=== PATIENT | female | born 1955 | race Native Hawaiian/Other Pacific Islander ===

== ENCOUNTER 2016-10-08 09:41 | Inpatient (IN) | payer OTHER ==
[~2016-10-08] VITALS: Ht 162.6 cm; Wt 63.0 kg
[2016-10-08 10:20] VITALS: BP 124/63; TEMP 97.6; Ht 162.6 cm; Wt 63.0 kg
[2016-10-08 10:56] LABS: PLATELET COUNT 224 K/uL (152-353)
[2016-10-08 11:19] LABS: POTASSIUM 4.7 mmol/L (3.6-5.2)
[2016-10-08 12:00] VITALS: BP 116/70; TEMP 97.9
[2016-10-08 16:00] VITALS: BP 124/68; TEMP 98.6
[2016-10-08] MEDS ORDERED: FLUTICASONE50 MCG (17:43)
[2016-10-08] MEDS ORDERED: FLUT0.05 NAS (17:43)
[2016-10-08] MEDS ORDERED: METF500T PO (17:46)
[2016-10-08 20:00] VITALS: BP 120/63; TEMP 98.9
[2016-10-08 23:59] VITALS: BP 111/52; TEMP 98.5
[2016-10-09] VITALS (7 sets, daily range): BP systolic 106–149; BP diastolic 54–81; TEMP 97.8–98.6
[2016-10-09 06:06] LABS: PLATELET COUNT 217 K/uL (152-353)
[2016-10-09 06:09] LABS: POTASSIUM 4.5 mmol/L (3.6-5.2); SODIUM 137 mmol/L (136-145)
== END 2016-10-09 18:40 | disposition short-term general hospital (02) | DRG 390 ==
LOC: MED/SURG 09:41
PROVIDERS: Emergency Medicine; ADMIT Internal Medicine
DX: K56.69 Other intestinal obstruction (principal); E86.0 Dehydration
CPT/HCPCS: 36591; 80053; 81000; 82150; 83690; 85027; 85651; 86140; J0744; J1100; J2270; J2405; J3490; Q9963

== ENCOUNTER 2016-10-09 17:25 | Outpatient (CLI) | payer OTHER ==
[~2016-10-09 17:25] MED LIST: FLUT0.05 NAS; FLUTICASONE50 MCG; METF500T PO
== END 2016-10-09 18:35 | disposition short-term general hospital (02) ==
LOC: AMB 17:25
DX: K56.69 Other intestinal obstruction (principal); E86.0 Dehydration
CPT/HCPCS: A0425; A0427

== ENCOUNTER 2016-10-24 11:35 | Outpatient (CLI) | payer OTHER | END 2016-10-24 19:08 | disposition home or self-care (01) | LOC: US 11:35 | DX: M79.89 Other specified soft tissue disorders (principal) ==

== ENCOUNTER 2017-02-26 08:37 | Outpatient (CLI) | payer OTHER | END 2017-02-26 19:04 | disposition home or self-care (01) | LOC: MAMMO 08:37 | DX: Z12.31 Encounter for screening mammogram for malignant neoplasm of breast (principal) | CPT/HCPCS: G0202-TC ==

== ENCOUNTER 2017-08-25 15:12 | Outpatient (CLI) | payer OTHER | END 2017-08-25 19:23 | disposition home or self-care (01) | LOC: RAD 15:12 | DX: M54.2 Cervicalgia (principal); M25.552 Pain in left hip; M25.551 Pain in right hip ==

== ENCOUNTER 2017-10-03 13:34 | Outpatient (CLI) | payer OTHER | END 2017-10-03 19:33 | disposition home or self-care (01) | LOC: MRI 13:34 | DX: M47.812 Spondylosis without myelopathy or radiculopathy, cervical region (principal); M54.2 Cervicalgia ==

== ENCOUNTER 2018-03-11 09:46 | Outpatient (CLI) | payer OTHER | END 2018-03-11 23:55 | disposition home or self-care (01) | LOC: MAMMO 09:46 | DX: Z12.31 Encounter for screening mammogram for malignant neoplasm of breast (principal) ==

== ENCOUNTER 2018-07-16 13:52 | Outpatient (CLI) | payer OTHER | END 2018-07-16 21:54 | disposition home or self-care (01) | LOC: MRI 13:52 | DX: M54.2 Cervicalgia (principal); M54.12 Radiculopathy, cervical region; M75.41 Impingement syndrome of right shoulder ==

== ENCOUNTER 2018-11-03 08:21 | Outpatient (CLI) | payer OTHER | END 2018-11-03 23:10 | disposition home or self-care (01) | LOC: RAD 08:21 | DX: Z13.820 Encounter for screening for osteoporosis (principal); Z78.0 Asymptomatic menopausal state ==

== ENCOUNTER 2019-10-13 13:25 | Outpatient (CLI) | payer OTHER ==
[2019-10-13 13:46] LABS: PLATELET COUNT 293 K/uL (152-353)
[2019-10-13 14:00] LABS: POTASSIUM 4.2 mmol/L (3.6-5.2)
== END 2019-10-13 20:24 | disposition home or self-care (01) ==
LOC: LAB 13:25
PROVIDERS: Internal Medicine
DX: E11.40 Type 2 diabetes mellitus with diabetic neuropathy, unspecified (principal)
CPT/HCPCS: 80053; 80061; 81000; 82043; 82306; 82570; 83036; 84439; 84443; 84550; 85027

== ENCOUNTER 2020-06-28 14:43 | Outpatient (CLI) | payer OTHER | END 2020-06-28 22:29 | disposition home or self-care (01) | LOC: MAMMO 14:43 | DX: Z12.31 Encounter for screening mammogram for malignant neoplasm of breast (principal) ==

== ENCOUNTER 2021-07-17 10:51 | Outpatient (CLI) | payer OTHER | END 2021-07-17 21:20 | disposition home or self-care (01) | LOC: RAD 10:51 → MAMMO 11:30 → RAD 21:20 | PROVIDERS: ATTEND Internal Medicine | DX: Z12.31 Encounter for screening mammogram for malignant neoplasm of breast (principal); Z13.820 Encounter for screening for osteoporosis; N95.8 Other specified menopausal and perimenopausal disorders ==

== ENCOUNTER 2022-01-01 17:38 | Outpatient (CLI) | payer OTHER ==
[2022-01-01 18:29] LABS: POTASSIUM 4.2 mmol/L (3.6-5.2)
[2022-01-01 18:50] LABS: PLATELET COUNT 203 K/uL (152-353)
== END 2022-01-01 18:57 | disposition home or self-care (01) ==
LOC: LAB 17:38
PROVIDERS: ATTEND Internal Medicine
DX: E11.9 Type 2 diabetes mellitus without complications (principal)
CPT/HCPCS: 80053; 80061; 81000; 82043; 83036; 84439; 84443; 85007; 85027

== ENCOUNTER 2022-07-17 17:46 | Outpatient (CLI) | payer OTHER ==
[2022-07-17 17:55] LABS: PLATELET COUNT 225 K/uL (152-353)
[2022-07-17 18:29] LABS: POTASSIUM 4.1 mmol/L (3.6-5.2)
== END 2022-07-17 20:52 | disposition home or self-care (01) ==
LOC: LAB 17:46
PROVIDERS: ATTEND Internal Medicine
DX: Z00.00 Encounter for general adult medical examination without abnormal findings (principal); Z13.820 Encounter for screening for osteoporosis; Z51.81 Encounter for therapeutic drug level monitoring; Z79.899 Other long term (current) drug therapy
CPT/HCPCS: 80053; 80061; 81002; 82306; 84439; 84443; 85027

== ENCOUNTER 2022-07-24 11:03 | Outpatient (CLI) | payer OTHER | END 2022-07-24 19:12 | disposition home or self-care (01) | LOC: MAMMO 11:03 | PROVIDERS: ATTEND Internal Medicine | DX: Z12.31 Encounter for screening mammogram for malignant neoplasm of breast (principal); Z13.820 Encounter for screening for osteoporosis; N95.8 Other specified menopausal and perimenopausal disorders ==

== ENCOUNTER 2023-04-16 14:44 | Outpatient (CLI) | payer OTHER ==
[2023-04-16 15:15] LABS: PLATELET COUNT 211 K/uL (152-353)
[2023-04-16 15:30] LABS: POTASSIUM 4.1 mmol/L (3.6-5.2)
== END 2023-04-16 19:10 | disposition home or self-care (01) ==
LOC: LAB 14:44
PROVIDERS: ATTEND Internal Medicine
DX: E11.9 Type 2 diabetes mellitus without complications (principal); F41.1 Generalized anxiety disorder; R82.998 Other abnormal findings in urine
CPT/HCPCS: 80053; 80061; 81000; 82043; 83036; 84439; 84443; 85027; 87077; 87086; 87088; 87186